=== PATIENT | female | born 1960 | race Caucasian/White ===

== ENCOUNTER → 2017-01-05 | Outpatient (CLI) | payer BC | LOC: MW.CHFP 10:11 | PROVIDERS: ATTEND Emergency Medicine | DX: R35.0 Frequency of micturition (principal); E04.2 Nontoxic multinodular goiter; N39.0 Urinary tract infection, site not specified | CPT/HCPCS: 36415; 81001; 84443; 87086; 87088; 87186 ==

== ENCOUNTER 2021-07-12 09:47 | Emergency (ER) | payer BC ==
[2021-07-12] MEDS ORDERED: Diphtheria,Pertussis(Acell),Tetanus Vaccine 0.5 ML Syringe IM ONE (10:44)
[2021-07-12] MEDS ORDERED: Diazepam 5 MG Tab PO ONE (10:44)
[2021-07-12] MEDS ORDERED: predniSONE 20 MG Tab PO ONE (10:46)
[2021-07-12] MEDS ORDERED: Acetaminophen/oxyCODONE 325-10 MG Tab PO ONE (10:46)
--- NOTE | 2021-07-12 11:05 | EDM.PDOC ---
ED HPI GENERAL MEDICAL PROBLEM - General Chief Complaint: Headache Stated Complaint: FELL DOWN STAIRS, HIT BACK OF HEAD AND BACK Time Seen by Provider: 07/12/21 10:17 Source of Information: Reports: Patient History Limitations: Reports: No Limitations - History of Present Illness INITIAL COMMENTS - FREE TEXT/NARRATIVE: HISTORY AND PHYSICAL: History of present illness: The patient is a 61-year-old female who fell down the last 3 steps of her house around 8:00 this morning landing on her posterior head back and buttocks. The patient denies any LOC, vomiting, or confusion. The patient is not on a blood thinner. The patient states that she is having some lower back pain and upper posterior and anterior thigh pain. Patient denies weakness when walking. Patient denies any numbness or burning pain. The patient states that her posterior scalp has been bleeding but is just sore and not painful. The patient did not clean the area prior to arrival. Patient denies any fever, chills, headache, change in vision, syncope or near syncope. Denies any chest pain, back pain, shortness of breath or cough. Denies any abdominal pain, nausea, vomiting, diarrhea, constipation or dysuria. Has not noted any blood in urine or stool. Patient has been eating and drinking appropriately. Review of systems: As per history of present illness and below otherwise all systems reviewed and negative. Past medical history: As per history of present illness and as reviewed below otherwise noncontributory. Surgical history: As per history of present illness and as reviewed below otherwise noncontributory. Social history: See social history for further information Family history: As per history of present illness and as reviewed below otherwise noncontributory. Physical exam: General: Well developed and well nourished. Alert and orientated x 3. Nontoxic in appearance and in no acute distress. Vital signs are stable and have been reviewed by me. Nursing notes were reviewed. HEENT: See skin. Normocephalic, pupils equal and reactive bilaterally, negative for conjunctival pallor or scleral icterus, mucous membranes moist, TMs normal bilaterally, throat clear, neck supple, nontender, trachea midline. No drooling or trismus noted. No meningeal signs. No hot potato voice noted. Lungs: Clear to auscultation bilaterally. No wheezes, rales, or rhonchi. Chest nontender. Normal work of breathing, no accessory muscles used. Heart: S1S2, regular rate and rhythm without overt murmur, gallops, or rubs. No JVD. No peripheral edema Abdomen: Soft, nondistended, nontender. Normoactive bowel sounds. Negative for masses or costovertebral tenderness. Skin: 1 cm linear laceration posterior scalp. No active bleeding. Warm, dry. No lesions or rashes noted. Hematologic: No petechiae or purpra. Mucosa appropriate color and normal nail bed color and refill. Back: Neck and back have no deformities, external skin changes, or signs of trauma. Curvature of the cervical, thoracic, and lumbar spine are within normal limits. Bony features of the shoulders and hips are of equal height bilaterally. Posture is upright, gait is smooth, steady, and within normal limits. No tenderness is noted on palpation of the spinous processes. Spinous processes are midline. Cervical, thoracic, and lumbar paraspinal muscles are not tender and are without spasm. No discomfort is noted with flexion, extension, and [id number] rotation of the cervical spine, full range of motion is noted. Full range of motion including flexion, extension, and [id number] rotation of the thoracic and lumbar spine are noted and mild discomfort with movement and palpation. Straight leg raise test is negative bilaterally. Sensation to the upper and lower extremities is normal bilaterally. No clonus is noted. 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 Dorsi/plantar flexion is normal bilaterally. Extremities: Atraumatic, moves all extremities per self without difficulty or deficits, negative for cords or calf pain. Neurovascular unremarkable. Neuro: Awake, alert, oriented. Cranial nerves II through XII unremarkable. Cerebellum unremarkable. Motor and sensory unremarkable throughout. Exam nonfocal. Psychiatric: Mood and affect are appropriate. Normal thought process. Answering questions appropriately. Notes: *This patient was seen and evaluated during the 2019 SARS-CoV-2 novel coronavirus pandemic period. Community viral transmission is ongoing at time of this encounter and the emergency department is operating under pandemic response procedures. As stated above the patient is a 61-year-old female who presents to the emergency department after falling down her steps. Examination revealed a 1 cm laceration on her posterior scalp. See procedure notes please. The patient tolerated the staple without difficulty. The patient's exam showed tenderness lower back and buttocks and posterior legs. The patient has increased pain when walking that shoots down bilateral buttocks to posterior thighs. She does not have any weakness and her straight leg raise was negative. As the patient has a history of sciatica this has most likely irritated it. I will treat the patient with the dose of Valium 10mg, Percocet 325/10 Norflex 60 mg IM, her a tetanus booster. The patient is agreeable with this plan. I will prescribe Percocet 325/5 mg 1 every 4 hours for 3 days, Norflex 100 mg by mouth twice a day for 10 days, and prednisone 40 mg daily for 5 days. I have educated the patient not take any NSAIDs such as Motrin or Aleve while taking the prednisone. The patient is agreeable with this discharge plan. I have talked with the patient about today's findings, in addition to providing specific details for plan of care. Reassessment at the time of disposition demonstrates that the patient is in no acute distress. The patient is stable for discharge, counseling was provided and we discussed in great detail signs and symptoms that would prompt them to return to the Emergency Department. Medication, follow up and supportive care measures were reviewed and discussed. Voices understanding and is agreeable to plan of care. Denies any further questions or concerns at this time. Therapeutics:Valium 10mg, Percocet 325/10 Norflex 60 mg IM, tetanus, prednisone Prescription:Percocet 325/5 mg 1 every 4 hours for 3 days, Norflex 100 mg by mouth twice a day for 10 days, and prednisone 40 mg daily for 5 days Impression: Low back pain, sciatica, fall Plan: 1. You were evaluated today on an emergent basis. Your complaints of fall which included a laceration to the back of your head, lower back pain, front and back type pain were evaluated with an examination. Your laceration was cleansed and a stable was applied. As we talked about, wait 24 hours prior to washing your hair. You want to protect your pillows as you will most likely sleep some blood for the next few days. You were treated with a tetanus for the laceration. Your back exam did not show any weakness or the possibility of a fracture. You are contused and have exacerbated your sciatic problem. I have treated you with Percocet for pain relief, Norflex and Valium for muscle relaxation, and predniso ne for your sciatica discomfort. I have prescribed Percocet 325/5 mg 1 every 4 hours for 3 days, Norflex 100 mg by mouth twice a day for 10 days, and prednisone 40 mg daily for 5 days. Be sure to not take any NSAIDs such as Motrin or Aleve while taking the prednisone. I have sent your Norflex and prednisone to [facility]. You were handed a prescription for the Percocet. If you are prone to stomach upset you can take [id number] Pepcid. 2. Keep the area clean and dry. Continue to monitor for signs of infection. Staple to be removed in 7-10 days. 3. Tylenol and/or ibuprofen as needed for pain management. 4. Please follow-up with your primary care provider in the next 1-2 days. Return to the ED as needed and as discussed. Definitive disposition and diagnosis as appropriate pending reevaluation and review of above. head/back Pain Score (Numeric/FACES): 4 - Related Data Allergies Allergy/AdvReac Type Severity Reaction Status Date / Time Penicillins Allergy Hives Verified 07/12/21 10:17 Home Meds: Home Meds Acetaminophen/oxyCODONE [Percocet 325-5 MG] 1 each PO Q4HR PRN 3 Days #12 tab 07/12/21 [Rx] Orphenadrine [Norflex] 100 mg PO BID PRN 10 Days #20 tab 07/12/21 [Rx] predniSONE 40 mg PO DAILY 5 Days #10 tab 07/12/21 [Rx] Past Medical History HEENT History: Reports: None Cardiovascular History: Reports: None Respiratory History: Reports: None Gastrointestinal History: Reports: None Genitourinary History: Reports: None 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: Musculoskeletal History: Reports: Arthritis, Fibromyalgia Neurological History: Reports: None Psychiatric History: Reports: None Endocrine/Metabolic History: Reports: None Hematologic History: Reports: None Immunologic History: Reports: None Oncologic (Cancer) History: Reports: None Dermatologic History: Reports: None - Infectious Disease History Infectious Disease History: Reports: Chicken Pox, Measles - Past Surgical History Endocrine Surgical History: Reports: Thyroidectomy, Other (See Below) Other Endocrine Surgeries/Procedures: partial thyroidectomy Musculoskeletal Surgical History: Reports: None Social & Family History - Family History Family Medical History: No Pertinent Family History - Tobacco Use Tobacco Use Status *Q: Never Tobacco User - Caffeine Use Caffeine Use: Reports: None - Recreational Drug Use Recreational Drug Use: No ED ROS GENERAL - Review of Systems Review Of Systems: Comprehensive ROS is negative, except as noted in HPI. ED EXAM, GENERAL - Physical Exam Exam: See Below (See Dictation) ED GENERAL MEDICAL PROCEDURES - Laceration/Wound Repair Lower Posterior Head Lac/wound length in cm: 1 Appearance: Superficial Distal NVT: Neuro & Vascular Intact Skin Prep: Chlorhexidine (Hibiciens), Saline Saline irrigation (cc's): 200 Exploration/Debridement/Repair: Wound Explored, In a Bloodless Field, No Foreign Material Found Closed with: [place] # of Sutures: 1 Tetanus Status Addressed: Yes Complications: No Course - Vital Signs Last Recorded V/S: Last Vital Signs Temp 97.5 F 07/12/21 10:18 Pulse 84 07/12/21 11:06 Resp 15 07/12/21 11:06 BP 123/55 L 07/12/21 11:06 Pulse Ox 97 07/12/21 11:06 - Orders/Labs/Meds Meds: Medications Discontinued Medications Generic Name Dose Route Start Last Admin Trade Name Guicho PRN Reason Stop Dose Admin Diazepam 10 mg 07/12/21 10:44 07/12/21 10:55 Diazepam 5 Mg Tab PO 07/12/21 10:45 10 mg ONETIME ONE Administration Diphtheria/Tetanus/Acell Pertussis 0.5 ml 07/12/21 10:44 07/12/21 11:03 Diphtheria,Pertussis(Acell),Tetanus Vaccine 0.5 Ml Syringe IM 07/12/21 10:45 0.5 ml .ONCE ONE Administration Oxycodone/Acetaminophen 1 tab 07/12/21 10:46 07/12/21 10:55 Acetaminophen/Oxycodone 325-10 Mg Tab PO 07/12/21 10:47 1 tab ONETIME ONE Administration Prednisone 40 mg 07/12/21 10:46 07/12/21 10:55 Prednisone 20 Mg Tab PO 07/12/21 10:47 40 mg ONETIME ONE Administration Departure - Departure Time of Disposition: 11:05 Disposition: Home, Self-Care 01 Condition: Good Clinical Impression: Fall (on) (from) other stairs and steps, initial encounter Scalp laceration Qualifiers: Encounter type: initial encounter Qualified Code(s): S01.01XA - Laceration without foreign body of scalp, initial encounter Back pain Qualifiers: Back pain location: low back pain Chronicity: acute Back pain laterality: bilateral Sciatica presence: with sciatica Sciatica laterality: bilateral sciatica Qualified Code(s): M54.42 - Lumbago with sciatica, left side - Discharge Information *PRESCRIPTION DRUG MONITORING PROGRAM REVIEWED*: Not Applicable *COPY OF PRESCRIPTION DRUG MONITORING REPORT IN PATIENT LETICIA: Not Applicable Prescriptions: Orphenadrine [Norflex] 100 mg PO BID PRN 10 Days #20 tab PRN Reason: Muscle Spasm - Painful Acetaminophen/oxyCODONE [Percocet 325-5 MG] 1 each PO Q4HR PRN 3 Days #12 tab PRN Reason: Pain (Moderate 4-6) predniSONE 40 mg PO DAILY 5 Days #10 tab Instructions: Fall Prevention in the Home, Adult, [id number], Acute Back Pain, Adult, Laceration Care, Adult, Pain Medicine Instructions, [id number] Referrals: Vivek Pitts MD [Primary Care Provider] - Forms: ED Department Discharge Additional Instructions: The following information is given to patients seen in the emergency department who are being discharged to home. This information is to outline your options for follow-up care. We provide all patients seen in our emergency department with a follow-up referral. The need for follow-up, as well as the timing and circumstances, are variable depending upon the specifics of your emergency department visit. If you don't have a primary care physician on staff, we will provide you with a referral. We always advise you to contact your personal physician following an emergency department visit to inform them of the circumstance of the visit and for follow-up with them and/or the need for any referrals to a consulting specialist. The emergency department will also refer you to a specialist when appropriate. This referral assures that you have the opportunity for follow-up care with a specialist. All of these measure are taken in an effort to provide you with optimal care, which includes your follow-up. Under all circumstances we always encourage you to contact your private physician who remains a resource for coordinating your care. When calling for follow-up care, please make the office aware that this follow-up is from your recent emergency room visit. If for any reason you are refused follow-up, please contact the [facility] Emergency Department at and asked to speak to the emergency department charge nurse. Gabrielle Ponce - Primary Care [address] [place] [address] [facility] [address] [place] [address] Plan: 1. You were evaluated today on an emergent basis. Your complaints of fall which included a laceration to the back of your head, lower back pain, front and back type pain were evaluated with an examination. Your laceration was cleansed and a stable was applied. As we talked about, wait 24 hours prior to washing your hair. You want to protect your pillows as you will most likely sleep some blood for the next few days. You were treated with a tetanus for the laceration. Your back exam did not show any weakness or the possibility of a fracture. You are contused and have exacerbated your sciatic problem. I have treated you with Percocet for pain relief, Norflex and Valium for muscle relaxation, and prednisone for your sciatica discomfort. I have prescribed Percocet 325/5 mg 1 every 4 hours for 3 days, Norflex 100 mg by mouth twice a day for 10 days, and prednisone 40 mg daily for 5 days. Be sure to not take any NSAIDs such as Motrin or Aleve while taking the prednisone. I have sent your Norflex and prednisone to [facility]. You were handed a prescription for the Percocet. If you are prone to stomach upset you can take [id number] Pepcid. 2. Keep the area clean and dry. Continue to monitor for signs of infection. Staple to be removed in 7-10 days. 3. Tylenol and/or ibuprofen as needed for pain management. 4. Please follow-up with your primary care provider in the next 1-2 days. Return to the ED as needed and as discussed. Sepsis Event Note (ED) - Evaluation Sepsis Screening Result: No Definite Risk - Focused Exam Vital Signs: Vital Signs Temp Pulse Resp BP Pulse Ox 07/12/21 11:06 84 15 123/55 L 97 07/12/21 10:18 97.5 F 77 18 119/50 L 96
== END 2021-07-12 11:14 | disposition home or self-care (01) ==
LOC: MW.ED 09:47
DX: S01.01XA Laceration without foreign body of scalp, initial encounter (principal); M54.42 Lumbago with sciatica, left side; Z23 Encounter for immunization; Z88.0 Allergy status to penicillin; W10.8XXA Fall (on) (from) other stairs and steps, initial encounter
CPT/HCPCS: 12001; 90471; 90715; 99283; A9270